=== PATIENT | male | born 1990 | race African-American/Black ===

== ENCOUNTER 2023-11-28 15:15 | Outpatient (REF) | payer OTHER, SELFPAY ==
[2023-11-28 18:06] LABS: TSH reflex Free T4 0.52 uIU/mL (0.32-4.0)
[2023-11-29 07:58] LABS: HIV AB/AG Nonreactive (Nonreactive); HIV Num 1 0.05 S/CO (0.00-0.99); ~Hepatitis C Antibody Nonreactive (Nonreactive)
[2023-11-29 08:17] LABS: Syphilis Screen Nonreactive (Nonreactive)
[2023-11-29 12:26] LABS: CT PCR NOT DETECTED (Not Detect.); NG PCR NOT DETECTED (Not Detect.)
== END 2023-11-28 15:16 | disposition home or self-care (01) ==
LOC: HO.CHCLDS 15:15
PROVIDERS: Visit Provider Pediatrics
DX: Z11.4 Encounter for screening for human immunodeficiency virus [HIV] (principal); Z20.2 Contact with and (suspected) exposure to infections with a predominantly sexual mode of transmission; K21.9 Gastro-esophageal reflux disease without esophagitis; Z71.3 Dietary counseling and surveillance; Z71.82 Exercise counseling
CPT/HCPCS: 0353U; 36415; 84443; 86780; 86803; 87389

== ENCOUNTER 2025-03-17 11:27 | Outpatient (REF) | payer OTHER, SELFPAY ==
--- OUTSIDE RECORDS SUMMARY | 2025-03-17 12:25 | XMS_ITS | Encounter Summary ---
Author Organization [employer] Address [address] [facility] [address] [place] [address] Care Team Providers Care Residential Gas Heat Technician Name Role Phone Petrona Paulino MD Primary Care Provider [phone] Reason for Visit * Reason Onset Date Comments Chart Prep 03/16/2025 Encounter Details Date Type Department Care Team ([facility] st Contact Info) Description 03/16/2025 Telephone [facility] [address] [place], [place] [phone] Petrona Paulino MD [address] [place] [address] Chart Prep Social History Tobacco Use Types Packs/Day Years Used Date Smoking Tobacco: Never Smokeless Tobacco: Never Alcohol Answer Date Recorded Frequency of Alcohol Consumption Not on file 11/28/2023 Average Number of Drinks Not on file 024 Frequency of Binge Drinking Not on file 11/2023 Score 0 11/28/2023 Depression Answer Date Recorded Patient Health Questionnaire-9 Score 5 03/17/2025 Patient Health Questionnaire-9 Score 5 03/17/2025 Last PHQ-9: Questionnaire Data Not on file 0 03/17/2025 Housing Stability Answer Date Recorded What is your housing situation today? I have rosio stiles 03/17/[address] you li ve. Do you have problems with any of the following? None of the above 03/17/2025 Food Insecurity Answer Date Recorded Within the past 12 months, y ou worried that your food would run out before you got money to buy more: Never True 03/17/2025 Within the past 12 months,th e food you bought just didn't last and you didn't have enough money to get more: Never True Transportation Answer Date Recorded In the past 12 months, has l ack of transportation kept you from medical appts, meetings, work or from getting things needed for daily living? No 03/17/2025 Utilities Answer Date Recorded In the past 12 months, has t he electric, gas, oil or water company threatened to shut off services in your home? No 03/17/2025 Depression Answer Date Recorded Patient Health Questionnaire-2 Score 1 03/17/2025 Internet Access Answer Date Recorded Internet Access Q1 Yes 03/17/2025 Internet Access Q2 Not on file 03/17/2025 Sex and Gender Information Value Date Recorded Sex Assigned at Male 06/25/2022 10:23 AM EDT Legal Sex Male 10:23 AM EDT Gender Identity Male 06/25/2022 10:23 AM EDT Sexual Orientation Straight 06/25/2022 10 :23 AM EDT documented as of this encounter Miscellaneous Notes * Telephone Encounter - Nery Mota [place] - 03/16/2025 3:58 PM EDT Chart Prep Labs: not applicable Images: not applicable Referrals: not applicable Vaccines due: Tdap, Hep B, and HPV Screenings: not applicable Overdue care gaps: SBIRT, SDOH, PHQ-9, Oral health screening, Disability screen, and Tobacco documented in this encounter Plan of Treatment Not on file documented as of this encounter Visit Diagnoses Not on filedocumented in this encounter Additional Health Concerns Assessment Noted Time PHQ-9 Depression Total Score: 8 01/27/20 24 3:37 PM EDT documented as of this encounter Care Teams Residential Gas Heat Technician Relationship Specialty Start Date End Date Petrona Paulino MD [address] [place] [address] PCP - General Family Medicine 07/16/18 documented as of this encounter
--- OUTSIDE RECORDS SUMMARY | 2025-03-17 12:25 | XMS_ITS | Clinical Summary ---
Author Organization [facility] Address [address] [place] [address] Phone Care Team Providers Care Senior Marketing Engineer Name Role Phone Petrona Paulino MD Primary Care Provider [phone] Allergies No known active allergies Medications carisoprodoL (SOMA) 350 mg tablet Take 1 tablet (350 mg total) by mouth 3 (three) times a day for 5 days. Max Daily Amount: 1,050 mg 15 tablet 02/26/2025 Active Encounters Date Type Department Care Team Description 02/26/2025 3:58 AM EDT - 02/26/2025 4:50 AM EDT Emergency [facility] Emergency [address] [place] [address] Angus Diallo MD Spasm of thoracic back muscle (Primary Dx) Discharge Disposition: Home or Self Care from Last 3 Months Social History Tobacco Use Types Packs/Day Years Used Date Smoking Tobacco: Never Assessed Sex and Gender Information Value Date Recorded Sex Assigned at Not on file Legal Sex Male 11:33 PM EST Gender Identity Not on file Sexual Orientation Not on file Last Filed Vital Signs Vital Sign Reading Time Taken Comments Blood Pressure 107/75 02/26/2025 2:00 AM EDT Pulse 76 02/26/2025 2:00 AM EDT Temperature 36.9 C (98.4 F) 02/26/2025 2:00 AM EDT Respiratory Rate 16 02/26/2025 2:00 AM EDT Oxygen Saturation 98% 02/26/2025 2:00 AM EDT Inhaled Oxygen Concentration - - Weight 65.8 kg (145 lb) 02/25/2025 10:12 PM EDT Height 154.9 cm (5' 1 ) 02/25/2025 10:12 PM EDT Body Mass Index 27.4 02/25/2025 10:12 PM EDT Plan of Treatment Upcoming Encounters Date Type Department Care Team (Late st Contact Info) Description 03/17/2025 7:30 PM EDT Appointment [facility] MRI [address] [place] [address] Health Maintenance Due Date Last Done Comments DTaP,Tdap,and Td Vaccines (1 - Tdap) 2010 Hepatitis B Vaccines (1 of 3 - 19+ 3-dose series) 2010 COVID-19 Vaccine (2023-2 5 season) 2024 Depression Screening 08/26/2024 Social Influencers of Health Screening 02/26/2025 Influenza Vaccine (#1) 2025 HIV Screening Completed 11/28/2023 Hepatitis C Screening Completed 11/28/2023 HIB Vaccines Aged Out No longer eligi ble based on patient's age to complete this topic HPV Vaccines Aged Out No longer eligi ble based on patient's age to complete this topic Hepatitis A Vaccines Aged Out No long er eligible based on patient's age to complete this topic IPV Vaccines Aged Out No longer eligi ble based on patient's age to complete this topic MMR Vaccines Aged Out No longer eligi ble based on patient's age to complete this topic Meningococcal ACWY Vaccine Aged Out N o longer eligible based on patient's age to complete this topic Meningococcal B Vaccine Aged Out No l onger eligible based on patient's age to complete this topic Pneumococcal Vaccine: Pediat rics (0 to 5 Years) and At-Risk Patients (6 to 49 Years) Aged Out No longer eligi ble based on patient's age to complete this topic RSV Immunization Patients Un amelia 20 months Aged Out No longer eligible b ased on patient's age to complete this topic Varicella Vaccines Aged Out No longer eligible based on patient's age to complete this topic Insurance GENERIC GENERIC Care Teams Senior Marketing Engineer Relationship Specialty Start Date End Date Petrona Paulino MD [address] [place] [phone] PCP - General Internal Medicine 02/26/25
[2025-03-17 14:17] LABS: MANUAL DIFF FLAG NO
[2025-03-17 14:20] LABS: Hematocrit 46.3 % (42.0-52.0); Hemoglobin 15.8 g/dl (14.0-18.0); Imm Gran Abs Auto 0.03 X10*3/uL (0.00-0.03); Imm Gran Pct Auto 0.4 % (0.0-0.4); Lymphocytes Absolute Auto 2.8 X10*3/uL (1.2-4.9); Mean Corpuscular HGB Conc 34.1 g/dl (31.0-36.0); Mean Corpuscular Hemoglobin 31.2 pg (27.0-33.0); Mean Corpuscular Volume 91.3 fL (80.0-98.0); NRBC Abs Auto 0.000 X10*3/uL (0.0-0.012); NRBC Pct Auto 0.0 /100WBC (0.0-0.2); Platelet Count 298 X10*3/uL (160-400); Red Blood Count 5.07 X10*6/uL (4.60-5.80); White Blood Count 7.6 X10*3/uL (4.8-10.8)
[2025-03-17 14:37] LABS: Alanine Aminotransferase 27 U/L (0-40); Albumin Level 4.7 g/dL (3.5-5.0); Alkaline Phosphatase 94 U/L (39-117); Anion Gap 11 (12-20); Aspartate Amino Transferase 24 U/L (5-37); Blood Urea Nitrogen 17 mg/dL (9-16); Calcium 9.5 mg/dL (8.4-10.2); Carbon Dioxide 29 mmol/L (22-29); Chloride 106 mmol/L (96-108); Estimated Glomerular Filt Rate > 60; Lipase 27 U/L (8-78); Potassium 4.7 mmol/L (3.3-5.1); Sodium 141 mmol/L (135-145); Total Protein 7.2 g/dL (6.5-8.0)
[2025-03-17 15:09] LABS: Folate 13.0 ng/mL (> or = 4.0); Vitamin B12 311 pg/mL (200-900)
[2025-03-17 15:42] LABS: CT PCR Urine NOT DETECTED (Not Detect.); NG PCR Urine NOT DETECTED (Not Detect.)
[2025-03-18 08:08] LABS: HIV Num 1 0.05 S/CO (0.00-0.99); ~HepC Num1 0.10 S/CO (0.00-0.79); ~Hepatitis C Antibody Nonreactive (Nonreactive)
== END 2025-03-17 11:28 | disposition home or self-care (01) ==
LOC: HO.CHCLDS 11:27
PROVIDERS: Visit Provider Pediatrics
DX: Z11.4 Encounter for screening for human immunodeficiency virus [HIV] (principal); R10.13 Epigastric pain; G89.29 Other chronic pain; Z91.89 Other specified personal risk factors, not elsewhere classified; Z20.2 Contact with and (suspected) exposure to infections with a predominantly sexual mode of transmission
CPT/HCPCS: 36415; 80048; 80076; 82607; 82746; 83013; 83690; 84443; 85025; 86803; 87389; 87491; 87591

== ENCOUNTER 2025-07-27 12:39 | Emergency (ER) | payer OTHER, SELFPAY ==
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
--- OUTSIDE RECORDS SUMMARY | 2025-07-24 08:57 | XMS_ITS | Encounter Summary ---
Author Organization [employer] Address [address] [place] [address] Care Team Providers Care Wall Scraper Name Role Phone Petrona Paulino MD Primary Care Provider [phone] Reason for Referral * Consultation (Routine) - Pending Review Specialty Diagnoses / Procedures Referred By Katty barrios Referred To Contact Neurology Diagnoses Nonintractable headache, unspecified chronicity pattern, unspecified headache type Aditya Gonzalez PA [address] [place] [address] Phone: tel: fax: Referral ID Status Reason Start Date Expiration Date Visits Requested Visits Authorized [id number] Pending Review Specialty Services Required 07/24/2026 1 1 Reason for Visit * Reason Comments Headache Encounter Details Date Type Department Care Team (Late st Contact Info) Description 07/24/2025 8:57 AM EST - 07/24/2025 11:52 AM EST Emergency [facility] Emergency [address] [place] [address] Nonintractable headache, unspecified chronicity pattern, unspecified headache type (Primary Dx) Discharge Disposition: Home or Self Care Social History Tobacco Use Types Packs/Day Years Used Date Smoking Tobacco: Never Assessed Sex and Gender Information Value Date Recorded Sex Assigned at Not on file Legal Sex Male 11:33 PM EST Gender Identity Not on file Sexual Orientation Not on file documented as of this encounter Last Filed Vital Signs Vital Sign Reading Time Taken Comments Blood Pressure 110/53 07/24/2025 11:41 AM EST Pulse 78 07/24/2025 11:41 AM EST Temperature 36.5 C (97.7 F) 07/24/2025 11:41 AM EST Respiratory Rate 18 07/24/2025 11:41 AM EST Oxygen Saturation 99% 07/24/2025 11:41 AM EST Inhaled Oxygen Concentration - - Weight 64.9 kg (143 lb) 07/24/2025 9:03 AM EST Height 162.6 cm (5' 4 ) 07/24/2025 9:03 AM EST Body Mass Index 24.55 07/24/2025 9:03 AM EST documented in this encounter Functional Status * Calculated C-SSRS Risk Score (Lifetime/Recent) Answer Date of Assessment Author No Risk Indicated 07/24/2025 8:39 AM Risa Javier RN * [place] Suicide Severity Rating Scale (Screener/Recent Self-Report) Question Answer Date of Assessment Author 1. Wish to be (Past 1 Month) No 025 8:39 AM Risa Javier RN documented as of this encounter Discharge Instructions * Discharge Instructions* PARKER Fields - 07/24/2025 11:22 AM EST CAT scan shows no signs of brain mass bleeding or tumor No emergent findings on workup today needing further testing, treatment or hospitalization Take medicines as needed as prescribed Follow up with primary care doctor if symptoms persist Return to Emergency Department with new or worsening symptoms * Attachments The following attachments cannot be sent through Care Everywhere. * Headache (Tamazight) documented in this encounter Medications at Time of Discharge ketorolac (TORADOL) 10 mg tablet Take 1 tablet (10 mg total) by mouth every 6 (six) hours if needed for moderate pain for up to 5 days. 20 tablet 07/24/2025 07/29/2025 metoclopramide (REGLAN) 10 mg tablet Take 1 tablet (10 mg total) by mouth every 6 (six) hours for 7 days. 30 tablet 07/24/2025 07/31/2025 documented as of this encounter Ordered Prescriptions Prescription Sig Dispense Quantity Refills Last Filled Start Date End Date metoclopramide (REGLAN) 10 mg tablet Take 1 tablet (10 mg total) by mouth every 6 (six) hours for 7 days. 30 tablet 07/24/2025 5 ketorolac (TORADOL) 10 mg tablet Take 1 tablet (10 mg total) by mouth every 6 (six) hours if needed for moderate pain for up to 5 days. 20 tablet 07/24/2025 5 documented in this encounter Discharge Disposition Disposition Code Departure Means Destination Comment s Home or Self Care documented in this encounter Progress Notes * Risa Monreal RN - 07/24/2025 8:39 AM EST Pt comes to ER with c/o a head ache that has been ongoing for 2 days with some associated n/v. Pt states he had a head injury in February and has experience head aches since but this is the worst he has felt. Pt states he was given 2 medications from his PCP but doesn't know what they're called and pt states was the last time he tired any medications for the pain. Pt a&ox 4, ambulates with steady gait in triage. * PARKER Fields - 07/24/2025 8:37 AM EST HPI Chief Complaint Patient presents with Headache HPI history of migraine headaches presenting with worsening frontal headache for the past 2 days with some associated nausea vomiting. Did have head injury back in February when the headache started. Never had any imaging. Denies any vision loss numbness tingling weakness changes in coordination Refugio Coma Scale Score: 15 Patient History Medical History[1] Surgical History[2] Family History[3] Social History Tobacco Use Smoking status: Not on file Smokeless tobacco: Not on file Substance Use Topics Alcohol use: Not on file Drug use: Not on file Review of Systems Review of Systems Physical Exam ED Triage Vitals [07/24/25 0903] Temp Heart Rate Resp BP 36.7 ??C (98.1 ??F) 87 18 124/82 SpO2 Temp Source Heart Rate Source Patient Position 100 % Oral Monitor Sitting BP Location FiO2 (%) Left arm -- Physical Exam GENERAL: No acute distress HEENT: Normocephalic and atraumatic, EOMI NECK: Supple, trachea is midline RESP: No respiratory distress, lung sounds clear and equal bilaterally, speaking complete sentences CARDIOVASCULAR: Heart sounds crisp without murmur, regular rate GASTROINTESTINAL: Abdomen is soft, non distended MUSCULOSKELETAL: No obvious acute deformities, ROM intact SKIN: Warm and dry NEUROLOGIC: At baseline, no acute focal deficits PSYCHIATRIC: Calm and cooperative ED Course & MDM Clinical Impressions as of 07/25/25 0741 Nonintractable headache, unspecified chronicity pattern, unspecified headache type Medical Decision Making Differential diagnosis tension, migraine, cluster, sinus headache, lower suspicion for mass, lesion, stroke, intracranial hypertension given mild nature of symptoms and no focal neurodeficits Vital signs reviewed Pulse oximetry reviewed and found to be > 94% on room air Physical exam as above Nursing notes reviewed CBC negative for significant leukocytosis or anemia requiring blood transfusion Metabolic panel negative for significant electrolyte abnormality with no signs of acute organ dysfunction Symptomatic treatment provided On reevaluation patient reportedly feeling better Social determinants of health considered including housing follow-up social and financial support Patient deemed appropriate for discharge with symptomatic treatment, recommendations to follow-up with primary care doctor / specialist with return precautions provided Procedures [1] No past medical history on file. [2] No past surgical history on file. [3] No family history on file. PARKER Fields 07/25/25 0741 Cosigned by Carlton Miller MD at 07/26/2025 11:19 PM EST documented in this encounter Plan of Treatment Scheduled Referrals Name Type Priority Associated Diagnoses Order Schedule Ambulatory referral to Neurology Outpatient Referral Routine 1 Occurrence s starting 07/24/2025 until 07/24/2026 documented as of this encounter Procedures Procedure Name Priority Date/Time Associated Diagnosis Comments CT HEAD WO CONTRAST STAT 07/24/2025 1 0:33 AM EST CBC WITH AUTO DIFFERENTIAL STAT 07/24/2025 9:17 AM EST CBC AND DIFFERENTIAL STAT 07/24/2025 9:17 AM EST BASIC METABOLIC PANEL STAT 07/24/2025 9:17 AM EST documented in this encounter Results * CT Head wo Contrast (07/24/2025 10:33 AM EST) Anatomical Region Laterality Modality Head and Neck Computed Tomogra phy 07/24/2025 11:0 3 AM EST Impressions 07/24/2025 11:12 AM EST No acute intracranial abnormality -------- FINAL REPORT -------- Dictated By: MIKY ESTEBAN Dictated Date: 07/24/2025 11:03 ET Assigned Physician: MIKY ESTEBAN Reviewed and Electronically Signed By: MIKY ESTEBAN Signed Date: 07/24/2025 11:12 ET Workstation ID: [id number] Transcribed By: Self Edit Transcribed Date: 07/24/2025 11:03 ET Narrative 07/24/2025 11:12 AM EST PROCEDURE: HEAD CT INDICATION: Pain TECHNIQUE: CT of the head without intravenous contrast. Multiplanar reformats. The examination was performed utilizing dose reduction techniques. Total DLP 809 COMPARISON: 04/30/2017 FINDINGS: No acute territorial infarct, mass effect, or intracranial hemorrhage. Qureshi-white differentiation is maintained. Brain parenchyma is normal. Ventricles, sulci, and cisterns are normal in size and configuration. No hydrocephalus or volume loss. Visualized paranasal sinuses and mastoid air cells are clear. No scalp hematoma or skull fracture. Procedure Note Miky Esteban MD - 07/24/2025 PROCEDURE: HEAD CT INDICATION: Pain TECHNIQUE: CT of the head without intravenous contrast. Multiplanarreformats. The examination was performed utilizing dose reductiontechniques. Total DLP 809 COMPARISON: 04/30/2017 FINDINGS: No acute territorial infarct, mass effect, or intracranial hemorrhage. Qureshi-white differentiation is maintained. Brain parenchyma is normal. Ventricles, sulci, and cisterns are normal in size and configuration. Nohydrocephalus or volume loss. Visualized paranasal sinuses and mastoid air cells are clear. No scalp hematoma or skull fracture. IMPRESSION: No acute intracranial abnormality -------- FINAL REPORT -------- Dictated By: MIKY ESTEBAN Dictated Date: 07/24/2025 11:03 ET Assigned Physician: MIKY ESTEBAN Reviewed and Electronically Signed By: MIKY ESTEBAN Signed Date: 07/24/2025 11:12 ET Workstation ID: [id number] Transcribed By: Self Edit Transcribed Date: 07/24/2025 11:03 ET us Aditya CANALES IMG CT PROCEDURES Final Res ult * (ABNORMAL) CBC auto differential (07/24/2025 9:17 AM EST) WBC 9.4 4.8 - 10.8 K/mcL LAB HEMETOLOGY METHOD 07/24/2025 9:35 AM [facility] RBC 5.20 4.50 - 5.50 M/[facility] LAB HEMETOLOGY METHOD 07/24/2025 9:35 AM [facility] Hemoglobin 16.0 13.5 - 17.5 g/dL LAB HEMETOLOGY METHOD 07/24/2025 9:35 AM [facility] Hematocrit 46.3 42.0 - 54.0 % LAB HEMETOLOGY METHOD 07/24/2025 9:35 AM [facility] MCV 89.2 79.0 - 98.0 FL LAB HEMETOLOGY METHOD 07/24/2025 9:35 AM [facility] MCH 30.8 27.0 - 32.0 pcg LAB HEMETOLOGY METHOD 07/24/2025 9:35 AM [facility] MCHC 34.6 32.0 - 37.0 g/dL LAB HEMETOLOGY METHOD 07/24/2025 9:35 AM [facility] RDW 12.5 11.0 - 15.0 % LAB HEMETOLOGY METHOD 07/24/2025 9:35 AM [facility] Platelets 286 130 - 400 K/mcL LAB HEMETOLOGY METHOD 07/24/2025 9:35 AM [facility] MPV 9.9 7.0 - 11.0 FL LAB HEMETOLOGY METHOD 07/24/2025 9:35 AM [facility] NRBC 0.0 <1.0 % LAB HEMETOLOGY METHOD 07/24/2025 9:35 AM [facility] NRBC Absolute 0.00 <0.10 K/mcL LAB HEMETOLOGY METHOD 07/24/2025 9:35 AM [facility] Neutrophils Relative 62.7 % LAB HEMETOLOGY METHOD 07/24/2025 9:35 AM [facility] Lymphocytes Relative 25.2 % LAB HEMETOLOGY METHOD 07/24/2025 9:35 AM [facility] Monocytes Relative 9.2 % LAB HEMETOLOGY METHOD 07/24/2025 9:35 AM [facility] Eosinophils Relative 2.1 % LAB HEMETOLOGY METHOD 07/24/2025 9:35 AM [facility] Basophils Relative 0.3 % LAB HEMETOLOGY METHOD 07/24/2025 9:35 AM [facility] Immature Granulocytes Relative 0.5 % LAB HEMETOLOGY METHOD 07/24/2025 9:35 AM [facility] Neutrophils Absolute 5.90 1.50 - 7.00 K/mcL LAB HEMETOLOGY METHOD 07/24/2025 9:35 AM [facility] Lymphocytes Absolute 2.38 1.00 - 5.00 K/mcL LAB HEMETOLOGY METHOD 07/24/2025 9:35 AM [facility] Monocytes Absolute 0.87 0.20 - 1.00 K/mcL LAB HEMETOLOGY METHOD 07/24/2025 9:35 AM [facility] Eosinophils Absolute 0.20 0.00 - 0.50 K/[facility] LAB HEMETOLOGY METHOD 07/24/2025 9:[address] [facility] Basophils Absolute 0.03 0.00 - 0.20 K/[facility] LAB HEMETOLOGY METHOD 07/24/2025 9:[address] [facility] Immature Granulocytes Absolute 0.05(H) 0.00 - 0.03 K/[facility] LAB HEMETOLOGY METHOD 07/24/2025 9:[address] [facility] Blood Venous blood specimen / Unknown Venipuncture / Unknown 07/24/2025 9:17 AM EST 07/24/2025 9:31 AM EST Aditya CANALES LAB BLOOD ORDERABLES Final Result [facility] [address] [place] [address], * (ABNORMAL) Basic Metabolic Panel (BMP) (07/24/2025 9:17 AM EST) Sodium 141 133 - 145 mmol/L 07/24/2025 9:59 AM [facility] Potassium 4.6 3.5 - 5.5 mmol/L 07/24/2025 9:59 AM [facility] Chloride 106 96 - 110 mmol/L 07/24/2025 9:59 AM [facility] CO2 27 21 - 32 mmol/L 07/24/2025 9:59 AM [facility] Anion Gap 8 3 - 11 07/24/2025 9:59 AM [facility] Glucose 108(H) 70 - 100 mg/dL 07/24/2025 9:59 AM [facility] BUN 21 5 - 25 mg/dL 07/24/2025 9:59 AM [facility] Creatinine 0.82 0.70 - 1.30 mg/dL 07/24/2025 9:[address] [facility] eGFR 119 >=60 mL/min/1. 73m2 07/24/2025 9:[address] [facility] Comment:Calculation based on the Chronic Kidney Disease Epidemiology Collaboration (CKD-EPI) equation refit without adjustment for race. BUN/Creatinine Ratio 25.6 07/24/2025 9:[address] [facility] Calcium 9.6 8.5 - 10.5 mg/dL 07/24/2025 9:[address] [facility] Blood Venous blood specimen / Unknown Venipuncture / Unknown 07/24/2025 9:17 AM EST 07/24/2025 9:31 AM EST us Aditya CANALES LAB BLOOD ORDERABLES Final Result Performing Organization Address City/State/[facility] Co de Phone Number [facility] [address] [place] [address], documented in this encounter Visit Diagnoses Diagnosis Nonintractable headache, unspecified chronicity pattern, unspecified headache type- Primary documented in this encounter Administered Medications Inactive Administered Medications - up to 3 most recent administrations Medication Order MAR Action Action Date Dose Rate Site diphenhydrAMINE (BENADRYL) injection 12.5 mg 12.5 mg, intravenous, Once, On 07/24/25 at 0904, For 1 dose Given 07/24/2025 9:28 AM EST 12.5 mg ketorolac (TORADOL) injection 15 mg 15 mg, intravenous, Once, On 07/24/25 at 0904, For 1 dose Given 07/24/2025 9:28 AM EST 15 mg metoclopramide (REGLAN) injection 10 mg 10 mg, intravenous, Once, On 07/24/25 at 0904, For 1 dose, Doses LESS than or equal to 10 mg can be given IV push undiluted over 1 minute Given 07/24/2025 9:28 AM EST 10 mg sodium chloride 0.9 % bolus 1,000 mL 1,000 mL, intravenous, at 2,000 mL/hr, Administer over 30 Minutes, Once, On 07/24/25 at 0904, For 1 dose New Bag 07/24/2025 9:28 AM EST 1,000 mL 2000 mL/hr documented in this encounter Active and Recently Administered Medications Times are shown in EST. Scheduled Medication Order 07/22/2025 07/23/2025 07/24/2025 diphenhydrAMINE (BENADRYL) injection 12.5 mg (COMPLETED) 12.5 mg, intravenous, Once, On 07/24/25 at 0904, For 1 dose 927 (Given - Provid er: Talia Gillette RN) ketorolac (TORADOL) injection 15 mg (COMPLETED) 15 mg, intravenous, Once, On 07/24/25 at 0904, For 1 dose 927 (Given - Provid er: Talia Gillette RN) metoclopramide (REGLAN) injection 10 mg (COMPLETED) 10 mg, intravenous, Once, On 07/24/25 at 0904, For 1 dose, Doses LESS than or equal to 10 mg can be given IV push undiluted over 1 minute 927 (Given - Provid er: Talia Gillette RN) sodium chloride 0.9 % bolus 1,000 mL (COMPLETED) 1,000 mL, intravenous, at 2,000 mL/hr, Administer over 30 Minutes, Once, On 07/24/25 at 0904, For 1 dose 927 (New Bag - Prov ider: Talia Gillette RN)1120 (Stopped - Provider: Gustavo Mirza RN) documented in this encounter Care Teams Wall Scraper Relationship Specialty Start Date End Date Petrona Paulino MD [address] [place] [address] PCP - General Internal Medicine 02/26/25 documented as of this encounter
--- OUTSIDE RECORDS SUMMARY | 2025-07-27 11:00 | XMS_ITS | Encounter Summary ---
Author Organization [employer] Address [address] [place] [address] Care Team Providers Care Decorating Consultant Name Role Phone Petrona Paulino MD Primary Care Provider [phone] Encounter Details Date Type Department Care Team (Late st Contact Info) Description 07/27/2025 11:00 AM EST Office Visit [facility] [address] [place] [address] [phone] Alfredito Vogt MD [address], [place] [phone] Intractable headache, unspecified chronicity pattern, unspecified headache type (Primary Dx); Nausea and vomiting, unspecified vomiting type Social History Tobacco Use Types Packs/Day Years [...] Sign Reading Time Taken Comments Blood Pressure 134/86 07/27/2025 11:28 AM EST Pulse 83 07/27/2025 11:28 AM EST Temperature 36.7 C (98 F) 07/27/2025 11:28 AM EST Respiratory Rate 17 07/27/2025 11:28 AM EST Oxygen Saturation 99% 07/27/2025 11:28 AM EST Inhaled Oxygen Concentration - - Weight 64.6 kg (142 lb 6.4 oz) 07/27/2025 11:28 AM EST Height - - Body Mass Index 23.7 07/17/2025 11:27 AM EST documented in this encounter Plan of Treatment Not on file documented as of this encounter Procedures Procedure Name Priority Date/Time Associated Diagnosis Comments POCT INFLUENZA B (ID NOW RAPID MOLECULAR) Routine 07/27/2025 11:53 AM EST Intractable headache, unspecified chronicity pattern, unspecified headache type POCT INFLUENZA A (ID NOW RAPID MOLECULAR) Routine 07/27/2025 11:53 AM EST Intractable headache, unspecified chronicity pattern, unspecified headache type POCT RAPID COVID ANTIGEN Routine 07/27/2025 11:53 AM EST Intractable headache, unspecified chronicity pattern, unspecified headache type documented in this encounter Results * POCT Rapid Covid-19 BinaxNOW (07/27/2025 11:53 AM EST) Rapid COVID Ag Negative Swab 07/27/2025 11:5 3 AM EST us Alfredito Vogt MD POINT OF CARE TEST ENTER/EDIT OR DERABLES Final Result * POCT Rapid Influenza A YEBOAH ID NOW (07/27/2025 11:53 AM EST) [facility] Influenza A Negative Negative, Indeterminate [facility] Swab 07/27/2025 11:5 3 AM EST us Alfredito Vogt MD POINT OF CARE TEST ENTER/EDIT OR DERABLES Final Result Performing Organization Address [facility] Co de Phone Number [facility] [address] [place] [phone] * POCT Rapid Influenza B YEBOAH ID NOW (07/27/2025 11:53 AM EST) [facility] Influenza B Negative Negative, Indeterminate [facility] Swab 07/27/2025 11:5 3 AM EST us Alfredito Vogt MD POINT OF CARE TEST ENTER/EDIT OR DERABLES Final Result Performing Organization Address [facility] Co de Phone Number [facility] [address] [place] [phone] documented in this encounter Visit Diagnoses Diagnosis Intractable headache, unspecified chronicity pattern, unspecified headache type- Primary Nausea and vomiting, unspecified vomiting type documented in this encounter Additional Health Concerns Assessment Noted Time PHQ-9 Depression Total Score: 5 03/17/20 25 10:56 AM EDT documented as of this encounter Care Teams Decorating Consultant Relationship Specialty Start Date End Date Petrona Paulino MD [address] [place] [phone] PCP - General Family Medicine 07/16/18 documented as of this encounter
[2025-07-27 12:41] VITALS: BP 139/75; PULSE 71; RESP 18; TEMP 36.6; O2SAT 98; BMI 23.7
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
[2025-07-27 13:03] LABS: Hemoglobin 15.0 g/dl (14.0-18.0); MANUAL DIFF FLAG NO; Red Blood Count 4.84 X10*6/uL (4.60-5.80); White Blood Count 9.8 X10*3/uL (4.8-10.8)
[2025-07-27 13:04] LABS: Hematocrit 43.1 % (42.0-52.0); Imm Gran Abs Auto 0.03 X10*3/uL (0.00-0.03); Imm Gran Pct Auto 0.3 % (0.0-0.4); Lymphocytes Absolute Auto 2.5 X10*3/uL (1.2-4.9); Mean Corpuscular HGB Conc 34.8 g/dl (31.0-36.0); Mean Corpuscular Hemoglobin 31.0 pg (27.0-33.0); Mean Corpuscular Volume 89.0 fL (80.0-98.0); NRBC Abs Auto 0.000 X10*3/uL (0.0-0.012); NRBC Pct Auto 0.0 /100WBC (0.0-0.2); Platelet Count 290 X10*3/uL (160-400)
[2025-07-27 13:05] LABS: Carbon Monoxide POC 3.0 %
[2025-07-27 13:18] LABS: Alanine Aminotransferase 35 U/L (0-40); Albumin Level 4.7 g/dL (3.5-5.0); Alkaline Phosphatase 83 U/L (39-117); Anion Gap 13 (12-20); Aspartate Amino Transferase 24 U/L (5-37); Blood Urea Nitrogen 13 mg/dL (9-16); Calcium 9.6 mg/dL (8.4-10.2); Carbon Dioxide 26 mmol/L (22-29); Chloride 106 mmol/L (96-108); Creatinine Clr Calc Pharmacy 134.4; Estimated Glomerular Filt Rate > 60; Magnesium 1.9 mg/dL (1.6-2.6); Potassium 3.8 mmol/L (3.3-5.1); Sodium 141 mmol/L (135-145); Total Protein 7.0 g/dL (6.5-8.0)
[2025-07-27 13:38] LABS: Resp Syncy Virus RNA Qual PCR NEGATIVE (Negative); SARS COV2 PCR INHOUSE NEGATIVE (Negative)
--- OUTSIDE RECORDS SUMMARY | 2025-07-27 14:57 | XMS_ITS | Encounter Summary ---
Author Organization [employer] Address [address] [place] [address] Care Team Providers Care Master Control Technician Name Role Phone Petrona Paulino MD Primary Care Provider [phone] Reason for Visit * Reason Comments Med Refill Encounter Details Date Type Department Care Team ([facility] st Contact Info) Description 07/24/2025 Refill [facility] [address] [place] [phone] Greg Rivera MD [address] [place] [address] Episodic cluster headache, not intractable Social History Tobacco Use Types Packs/Day Years [...] AM EDT documented as of this encounter Plan of Treatment Not on file documented as of this encounter Visit Diagnoses Diagnosis Episodic cluster headache, not intractable documented in this encounter Additional Health Concerns Assessment Noted Time PHQ-9 Depression Total Score: 5 03/17/20 25 10:56 AM EDT documented as of this encounter Care Teams Master Control Technician Relationship Specialty Start Date End Date Petrona Paulino MD [address] [place] [address] PCP - General Family Medicine 07/16/18 documented as of this encounter
--- OUTSIDE RECORDS SUMMARY | 2025-07-27 14:57 | XMS_ITS | Encounter Summary ---
Author Organization [employer] Address [address] [facility] 7 [place] [address] Care Team Providers Care Rectifying Operator Name Role Phone Petrona Paulino MD Primary Care Provider Reason for Visit * Reason Onset Date Comments ER Follow-up 07/27/2025 Encounter Details Date Type Department Care Team ([facility] st Contact Info) Description 07/27/2025 Telephone [facility] [address] [place] [address] Petrona Paulino MD [address] [place] [address] ER Follow-up Social History Tobacco Use Types Packs/Day Years [...] encounter Miscellaneous Notes * Telephone Encounter - Reid Alvarez RN - 07/27/2025 10:42 AM EST TC placed to patient. Patient was seen at [facility] ED on 07/24 and [facility] ED on 07/26 for headaches, N/V. Patient reported his headaches has not subsided after the ED visit. Patient reported he is taking the prescribed medications from the ED visit w/o any relief. RN scheduled an appt with a providerfor further evaluation. Patient verbalized understanding. Protocol Used: Headache (Adult) Protocol-Based Disposition: See in Office or Video Visit Today Video visit not offered Positive Triage Questions: * Patient wants to be seen * Moderate headache (e.g., interferes with normal activities) present > 24 hours and unexplained * Similar to previously diagnosed migraine headaches * All higher-acuity triage questions were negative. Care Advice Discussed: * Reassurance and Education - Migraine Headache * Pain Medicine for Migraine * Pain Medicines * Pain Medicines - Extra Notes and Warnings * Rest for Migraine Headache * Headache Diary * Reasons To Call Back - Severe headache lasts over 2 hours after pain medicine - Headache lasts over 72 hours - Stiff neck occurs (can't touch chin to chest) - You become worse * Telephone Encounter - Christine Rey - 07/27/2025 8:43 AM EST Patient calling to report ED visit on : Date: 07/26 Hospital: [facility] Seen for: Hot flashes, headache Symptomatic Yes *if yes message should go to Triage Patient advised will forward to team nurse for follow up documented in this encounter Plan of Treatment Not on file documented as of this encounter Visit Diagnoses Not on filedocumented in this encounter Additional Health Concerns Assessment Noted Time PHQ-9 Depression Total Score: 5 03/17/20 25 10:56 AM EDT documented as of this encounter Care Teams Rectifying Operator Relationship Specialty Start Date End Date Petrona Paulino MD [address] [place] [address] PCP - General Family Medicine 07/16/18 documented as of this encounter
--- OUTSIDE RECORDS SUMMARY | 2025-07-27 14:57 | XMS_ITS | Encounter Summary ---
Author Organization [employer] Address [address] [facility] 7 [place] [address] Care Team Providers Care Soft Boarder Name Role Phone Petrona Paulino MD Primary Care Provider [phone] Encounter Details Date Type Department Care Team (Late st Contact Info) Description 07/26/2025 Orders Only [facility] [address] [place] [address] Provider, MD Teri Social History Tobacco Use Types Packs/Day Years [...] your housing situation today? I have rosio linsey 03/17/[address] you li [...] Associated Diagnosis Comments CT HEAD WO CONTRAST Routine 07/24/2025 documented in this encounter Results * CT Head w/o Contrast (07/24/2025) Anatomical Region Laterality Modality Head, Neck Computed Tomogra phy us Historical Provider MD SIMMONS CT PROCEDURES Final R esult documented in this encounter Visit Diagnoses Not on filedocumented in this encounter Additional Health Concerns Assessment Noted Time PHQ-9 Depression Total Score: 5 03/17/20 25 10:56 AM EDT documented as of this encounter Care Teams Soft Boarder Relationship Specialty Start Date End Date Petrona Paulino MD [address] [place] [phone] PCP - General Family Medicine 07/16/18 documented as of this encounter
--- OUTSIDE RECORDS SUMMARY | 2025-07-27 14:58 | XMS_ITS | Encounter Summary ---
Author Organization [employer] Address [address] [place] [address] Care Team Providers Care Dozer Operator Name Role Phone Petrona Paulino MD Primary Care Provider [phone] Encounter Details Date Type Department Care Team (Latest Contact Info) Description 07/27/2025 Travel Social History Tobacco Use Types Packs/Day Years [...] documented as of this encounter Care Teams Dozer Operator Relationship Specialty Start Date End Date Petrona Paulino MD [address] [place] [phone] PCP - General Family Medicine 07/16/18 documented as of this encounter
--- OUTSIDE RECORDS SUMMARY | 2025-07-27 14:58 | XMS_ITS | Encounter Summary ---
Author Organization [employer] Address [address] [facility] 7 [place] [address] Care Team Providers Care Ground Worker Name Role Phone Petrona Paulino MD Primary Care Provider [phone] Encounter Details Date Type Department Care Team (Late st Contact Info) Description 03/19/2025 Orders Only [facility] [address] [place] [address] Provider, MD Teri Social History Tobacco Use [...] Procedure Name Priority Date/Time Associated Diagnosis Comments MRI LUMBAR SPINE W WO CONTRAST Routine 03/17/2025 11:29 AM EDT documented in this encounter Results * MRI LUMBAR SPINE W WO CONTRAST (03/17/2025 11:29 AM EDT) Anatomical Region Laterality Modality Magnetic Resonan ce us Historical Provider MD SIMMONS MRI PROCEDURES Final Result documented in this encounter Visit Diagnoses Not on filedocumented in this encounter Additional Health Concerns Assessment Noted Time PHQ-9 Depression Total Score: 5 03/17/20 25 10:56 AM EDT documented as of this encounter Care Teams Ground Worker Relationship Specialty Start Date End Date Petrona Paulino MD [address] [place] [phone] PCP - General Family Medicine 07/16/18 documented as of this encounter
--- OUTSIDE RECORDS SUMMARY | 2025-07-27 14:58 | XMS_ITS | Encounter Summary ---
Author Organization [employer] Address [address] [place] [address] Care Team Providers Care Furniture Associate Name Role Phone Petrona Paulino MD Primary Care Provider [phone] Reason for Visit * Reason Onset Date Comments Appointment Request 10/16/2023 Encounter Details Date Type Department Care Team ([facility] st Contact Info) Description 10/16/2023 Telephone [facility] [address] [place] [address] Petrona Paulino MD [address] [place] [address] Appointment Request Social History Tobacco Use Types Packs/Day Years Used Date Smoking Tobacco: Never Assessed Sex and Gender Information Value Date Recorded Sex Assigned at Male 06/25/2022 10:23 AM EDT Legal Sex Male 10:23 AM EDT Gender Identity Male 06/25/2022 10:23 AM EDT Sexual Orientation Straight 06/25/2022 10 :23 AM EDT documented as of this encounter Miscellaneous Notes * Telephone Encounter - Agustina Montelongo - 10/16/2023 4:24 PM EST Tc from pt requesting a PE or f/u appt with PCP, pt released. documented in this encounter Plan of Treatment Not on file documented as of this encounter Visit Diagnoses Not on filedocumented in this encounter Care Teams Furniture Associate Relationship Specialty Start Date End Date Petrona Paulino MD [address] [place] [phone] PCP - General Family Medicine 07/16/18 documented as of this encounter
--- OUTSIDE RECORDS SUMMARY | 2025-07-27 14:58 | XMS_ITS | Encounter Summary ---
Author Organization [employer] Address [address] [facility] [place] [address] Care Team Providers Care Escort Patients Name Role Phone Petrona Paulino MD Primary Care Provider [phone] Encounter Details Date Type Department Care Team (Late st Contact Info) Description 07/27/2025 Orders Only GENERIC EXTERNAL DATA DEPARTMENT Provider, Generic External Data Social History Tobacco Use Types Packs/Day Years [...] Name Priority Date/Time Associated Diagnosis Comments POCT CARBON MONOXIDE Routine 07/27/2025 1:03 PM EST SARS COV2/INFLUENZA A/B AND RSV RNA QL NAAT Routine 07/27/2025 12:55 PM EST CBC WITH AUTO DIFFERENTIAL Routine 07/27/2025 12:55 PM EST MAGNESIUM Routine 07/27/2025 12:55 PM EST COMPREHENSIVE METABOLIC PANEL Routine 07/27/2025 12:55 PM EST documented in this encounter Results * POCT Carbon Monoxide (07/27/2025 1:03 PM EST) [facility] Signature Carbon Monoxide POC 3.0 % [facility] Comment:METER #: [id number] additional_comment: Cb bdawehCARBON MONOXIDE REFERENCE RANGE: NON SMOKERS: LESS THAN 2.0% SMOKERS: 2.0 - 9.0%Note:Therapeutic levels of Hydroxocobalamin (1 mg/mL and 2 mg/mL)may interfere with carboxyhemoglobin causing lower thanexpected values. A negative interference withcarboxyhemoglobin has the potential to alter the medicalassessment of the patient and may withhold necessaryfollow-up treatment in response to elevatedcarboxyhemoglobin levels. 07/27/2025 1:03 PM EST 07/27/2025 1:05 PM EST Generic External Data Provider LAB POINT OF CARE TEST DOCKED DEVICE ORDERABLES Final Result Performing Organization Address [facility] Co de Phone Number [facility] [address] [place] [phone] * SARS-CoV-2 RNA, Influenza A/B, and RSV RNA, Ql NAAT (07/27/2025 12:55 PM EST) Influenza A PCR NEGATIVE Negative [facility] Influenza B PCR NEGATIVE Negative [facility] Resp Syncy Virus RNA Qual PCR NEGATIVE Negative [facility] SARS COV2 PCR NEGATIVE Negative [facility] Comment:All test results mus t be correlated with clinical findings.Negative results do not preclude SARS-CoV2, influenza Avirus, influenza B virus and/or RSV infectionand should not be used as the sole basis for treatment orother patient management decisions. Negative results must becombined with clinical observations, patient history, andepidemiological information.This test has not been evaluated for monitoring treatment ofinfection.This test has been authorized by the FDA under an EmergencyUse Authorization (EUA) for use by authorized laboratories.Testing performed on the [employer] GeneXpert utilizingreal-time RT-PCR.All SARS CoV2 and positive influenza A/B results arereported to [facility]. 07/27/2025 12:5 5 PM EST 07/27/2025 12:59 PM EST us Generic External Data Provider LAB MICROBIOLOGY - GENERAL ORDERABLES Final Result Performing Organization Address [facility] Co de Phone Number [facility] [address] [place] [phone] * Magnesium (07/27/2025 12:55 PM EST) Magnesium 1.9 1.6 - 2.6 mg/dL [facility] 07/27/2025 12:5 5 PM EST 07/27/2025 12:59 PM EST us Generic External Data Provider LAB BLOOD ORDERAB LES Final Result [facility] [address] [place] [phone] [phone] * Comprehensive Metabolic Panel (07/27/2025 12:55 PM EST) Sodium 141 135 - 145 mmol/L [facility] Potassium 3.8 3.3 - 5.1 mmol/L [facility] Chloride 106 96 - 108 mmol/L [facility] Carbon Dioxide 26 22 - 29 mmol/L [facility] Anion Gap 13 12 - 20 [facility] Urea Nitrogen (BUN) 13 9 - 16 mg/dL [facility] Creatinine, Serum 0.68 0.5 - 1.4 mg/dL [facility] Creatinine Clr Calc Pharmacy 134.4 [facility] Comment:eGFR (calculated fro m the MDRD study equation) and eCrCl(calculated from the Cockcroft-Gault equation) are based ondifferent parameters and may not yield comparable results.If eCrCl result is absurd, please check patient'sheight/weight. Estimated Glomerular Filt Rate >60 [facility] Comment:Chronic Kidney Disea se: Estimated GFR < 60 mL/min/1.08w0Sivmbx Kidney Disease: Estimated GFR < 15 mL/min/1.73m2 Glucose 101 60 - 115 mg/dL [facility] Calcium 9.6 8.4 - 10.2 mg/dL [facility] Bilirubin, Total 0.6 0.0 - 1.0 mg/dL [facility] Aspartate Amino Transferase 24 5 - 37 U/L [facility] Alanine Aminotransferase 35 0 - 40 U/L [facility] Total Protein 7.0 6.5 - 8.0 g/dL [facility] Albumin Level 4.7 3.5 - 5.0 g/dL [facility] Alkaline Phosphatase 83 39 - 117 U/L [facility] 07/27/2025 12:5 5 PM EST 07/27/2025 12:59 PM EST us Generic External Data Provider LAB BLOOD ORDERAB LES Final Result [facility] [address] [place] [phone] [phone] * CBC auto differential (07/27/2025 12:55 PM EST) White Blood Count 9.8 4.8 - 10.8 X10*3/uL [facility] Red Blood Count 4.84 4.60 - 5.80 X10*6/uL [facility] Hemoglobin 15.0 14.0 - 18.0 g/dl [facility] Hematocrit 43.1 42.0 - 52.0 % [facility] Mean Corpuscular Volume 89.0 80.0 - 98.0 fL [facility] Mean Corpuscular Hemoglobin 31.0 27.0 - 33.0 pg [facility] Mean Corpuscular HGB Conc 34.8 31.0 - 36.0 g/dl [facility] Red Cell Distribution Width 12.2 11.0 - 16.0 % [facility] Platelet Count 290 160 - 400 X10*3/uL [facility] Mean Platelet Volume 9.4 9.4 - 12.4 fL [facility] Neutrophils Percent Auto 62.7 45 - 73 % [facility] Imm Gran Pct Auto 0.3 0.0 - 0.4 % [facility] Lymphocytes Percent Auto 25.9 20 - 40 % [facility] Monocytes Percent Auto 10.1 2 - 11 % [facility] Eosinophils Percent Auto 0.7 0 - 4 % [facility] Basophils Percent Auto 0.3 0 - 2 % [facility] NRBC Pct Auto 0.0 0.0 - 0.2 /100WBC [facility] Neutrophils Absolute Auto 6.1 2.0 - 8.3 x10*3/uL [facility] Imm Gran Abs Auto 0.03 0.00 - 0.03 X10*3/uL [facility] Lymphocytes Absolute Auto 2.5 1.2 - 4.9 X10*3/uL [facility] Monocytes Absolute Auto 1.0 0.1 - 1.2 X10*3/uL [facility] Eosinophils Absolute Auto 0.1 0.0 - 0.4 X10*3/uL [facility] Basophils Absolute Auto 0.0 0.0 - 0.2 X10*3/uL [facility] NRBC Abs Auto 0.000 0.0 - 0.012 X10*3/uL [facility] 07/27/2025 12:5 5 PM EST 07/27/2025 12:59 PM EST us Generic External Data Provider LAB BLOOD ORDERAB LES Final Result [facility] [address] [place] [phone] documented in this encounter Visit Diagnoses Not on filedocumented in this encounter Additional Health Concerns Assessment Noted Time PHQ-9 Depression Total Score: 5 03/17/20 25 10:56 AM EDT documented as of this encounter Care Teams Escort Patients Relationship Specialty Start Date End Date Petrona Paulino MD [address] [place] [phone] PCP - General Family Medicine 07/16/18 documented as of this encounter
--- OUTSIDE RECORDS SUMMARY | 2025-07-27 14:58 | XMS_ITS | Encounter Summary ---
Author Organization [employer] Address [address] [facility] 7 [place] [address] Care Team Providers Care Gas Dispenser Name Role Phone Petrona Paulino MD Primary Care Provider Reason for Visit * Reason Onset Date Comments Nurse Triage 02/26/2024 Encounter Details Date Type Department Care Team ([facility] st Contact Info) Description 02/26/2024 Telephone [facility] [address] [place] [address] Petrona Paulino MD [address] [place] [address] Nurse Triage Social History Tobacco Use Types Packs/Day Years Used Date Smoking Tobacco: Never Smokeless Tobacco: Never Alcohol Answer Date Recorded Frequency of Alcohol Consumption Not on file 11/28/2023 Average Number of Drinks Not on file 024 Frequency of Binge Drinking Not on file 11/2023 Score 0 11/28/2023 Depression Answer Date Recorded Patient Health Questionnaire-9 Score 8 01/27/2024 Patient Health Questionnaire-9 Score 8 01/27/2024 Last PHQ-9: Questionnaire Data Not on file 0 01/27/2024 Housing Stability Answer Date Recorded What is your housing situation today? I have rosio stiles 11/18/[address] you li ve. Do you have problems with any of the following? None of the above 11/18/2023 Food Insecurity Answer Date Recorded Within the past 12 months, y ou worried that your food would run out before you got money to buy more: Never True 11/18/2023 Within the past 12 months,th e food you bought just didn't last and you didn't have enough money to get more: Never True Transportation Answer Date Recorded In the past 12 months, has l ack of transportation kept you from medical appts, meetings, work or from getting things needed for daily living? No 11/18/2023 Utilities Answer Date Recorded In the past 12 months, has t he electric, gas, oil or water company threatened to shut off services in your home? No 11/18/2023 Depression Answer Date Recorded Patient Health Questionnaire-2 Score 3 01/27/2024 Sex and Gender Information Value Date Recorded Sex Assigned at Male 06/25/2022 10:23 AM EDT Legal Sex Male 10:23 AM EDT Gender Identity Male 06/25/2022 10:23 AM EDT Sexual Orientation Straight 06/25/2022 10 :23 AM EDT documented as of this encounter Miscellaneous Notes * Telephone Encounter - Agustina Montelongo - 02/26/2024 10:26 AM EDT Symptom: Hand or Wrist Pain - Not From Injury Outcome: Schedule an urgent appointment (within 1 hour) or talk to a nurse or provider soon Reason: Severe pain now The caller accepted this outcome Pt is requesting a call between 3;40-4:30 documented in this encounter Plan of Treatment Not on file documented as of this encounter Visit Diagnoses Not on filedocumented in this encounter Additional Health Concerns Assessment Noted Time PHQ-9 Depression Total Score: 8 01/27/20 24 3:37 PM EDT documented as of this encounter Care Teams Gas Dispenser Relationship Specialty Start Date End Date Petrona Paulino MD [address] [place] [id number] PCP - General Family Medicine 07/16/18 documented as of this encounter
--- OUTSIDE RECORDS SUMMARY | 2025-07-27 14:58 | XMS_ITS | Encounter Summary ---
Author Organization [employer] Address [address] [facility] [address] 7[address] [place] [address] Care Team Providers Care Environmental Sampling Technician Name Role Phone Petrona Paulino MD Primary Care Provider [phone] Encounter Details Date Type Department Care Team ([facility] st Contact Info) Description 04/24/2024 Orders Only [facility] MED[facility]INE [address] [place], [place] [phone] Shannon Hunter MD [address] [place], [place] [phone] Social History Tobacco Use Types Packs/Day Years [...] documented as of this encounter Care Teams Environmental Sampling Technician Relationship Specialty Start Date End Date Petrona Paulino MD [address] [place] [id number] PCP - General Family Medicine 07/16/18 documented as of this encounter
--- OUTSIDE RECORDS SUMMARY | 2025-07-27 14:58 | XMS_ITS | Clinical Summary ---
Author Organization [facility] Address [address] [place] [address] Phone Care Team Providers Care Software Project Lead Name Role Phone Petrona Paulino MD Primary Care Provider [phone] Allergies No known active allergies Medications carisoprodoL (SOMA) 350 mg tablet Take 1 tablet (350 mg total) by mouth 3 (three) times a day for 5 days. Max Daily Amount: 1,050 mg 15 tablet 02/26/2025 Active ketorolac (TORADOL) 10 mg tablet Take 1 tablet (10 mg total) by mouth every 6 (six) hours if needed for moderate pain for up to 5 days. 20 tablet 07/24/2025 07/29/20 25 Active metoclopramide (REGLAN) 10 mg tablet Take 1 tablet (10 mg total) by mouth every 6 (six) hours for 7 days. 30 tablet 07/24/2025 07/31/20 25 Active Encounters Date Type Department Care Team Description 07/24/2025 8:57 AM EST - 07/24/2025 11:52 AM EST Emergency [facility] Emergency [address] [place] [address] Nonintractable headache, unspecified chronicity pattern, unspecified headache [...] Mass Index 24.55 07/24/2025 9:03 AM EST Plan of Treatment Health Maintenance Due Date Last Done Comments DTaP,Tdap,and Td Vaccines (1 - Tdap) 2010 Hepatitis B Vaccines (1 of 3 - 19+ 3-dose series) 2010 HPV Vaccines (1 - 3-dose SCD M series) 2018 Depression Screening 08/26/2024 Social Influencers of Health Screening 02/26/2025 COVID-19 Vaccine (1 - 2024-2 6 season) 2025 Influenza Vaccine (#1) 2025 RSV Immunization Adult Patients (1 - 1-dose 75+ series) 2066 HIV Screening Completed 03/17/2025, 11/28/2023 Hepatitis C Screening Completed 03/17/2025 , 11/28/2023 HIB Vaccines Aged Out No longer [...] age to complete this topic Pneumococcal Vaccine: Pediatrics (0 to 5 Years) and At-Risk Patients (6 to 49 Years) Aged Out No longer eligible b ased on patient's age to complete this topic RSV Immunization Patients Under 20 months Aged Out No longer eligible b ased on patient's age to complete this topic Varicella Vaccines Aged Out No longer eligible based on patient's age to complete this topic Procedures Procedure Name Priority Date/Time Associated Diagnosis Comments CT HEAD WO CONTRAST STAT 07/24/2025 1 0:33 AM EST CBC WITH AUTO DIFFERENTIAL STAT 07/24/2025 9:17 AM EST CBC AND DIFFERENTIAL STAT 07/24/2025 9:17 AM EST BASIC METABOLIC PANEL STAT 07/24/2025 9:17 AM EST from Last 3 Months Results * CT Head wo Contrast (07/24/2025 [...] Signed Date: 07/24/2025 11:12 ET Workstation ID: [id number] Transcribed By: Self Edit Transcribed Date: 07/24/2025 [...] Signed Date: 07/24/2025 11:12 ET Workstation ID: [id number] Transcribed By: Self Edit Transcribed Date: 07/24/2025 11:03 ET Aditya CANALES [facility] [place]ED[place] Final Res ult * (ABNORMAL) CBC auto differential (07/24/2025 9:17 AM EST) WBC 9.4 4.8 - 10.8 K/[facility] LAB HEMETOLOGY METHOD 07/24/2025 9:35 AM [facility] RBC 5.20 4.50 - 5.50 M/[facility] LAB HEMETOLOGY METHOD 07/24/2025 9:35 AM HOLDEN [...] K/[facility] LAB HEMETOLOGY METHOD 07/24/2025 9:35 AM EST [facility] Monocytes Absolute 0.87 0.20 - 1.00 K/[facility] LAB HEMETOLOGY METHOD 07/24/2025 9:35 AM EST [facility] Eosinophils Absolute 0.20 0.00 - 0.50 K/[facility] LAB HEMETOLOGY METHOD 07/24/2025 9:35 AM EST [facility] Basophils Absolute 0.03 0.00 - 0.20 K/[facility] LAB HEMETOLOGY METHOD 07/24/2025 9:35 AM [facility] Immature Granulocytes Absolute 0.05(H) 0.00 - 0.03 K/[facility] LAB HEMETOLOGY METHOD 07/24/2025 9:35 AM [facility] Blood Venous blood specimen / Unknown Venipuncture / Unknown 07/24/2025 9:17 AM EST 07/24/2025 9:31 AM EST Aditya CANALES LAB BLOOD ORDERABLES Final Result [facility] [address] [place] [address], * (ABNORMAL) Basic Metabolic Panel (BMP) (07/24/2025 9:17 AM EST) Sodium 141 133 - 145 mmol/L 07/24/2025 9:59 AM EST [facility] Potassium 4.6 3.5 - 5.5 mmol/L 07/24/2025 9:59 AM [facility] Chloride 106 96 - 110 mmol/L 07/24/2025 9:59 AM [facility] CO2 27 21 - 32 mmol/L 07/24/2025 9:59 AM EST [facility] Anion Gap 8 3 - 11 07/24/2025 9:59 AM EST [facility] Glucose 108(H) 70 - 100 mg/dL 07/24/2025 9:59 AM [facility] BUN 21 5 - 25 mg/dL 07/24/2025 9:59 AM [facility] Creatinine 0.82 0.70 - 1.30 mg/dL 07/24/2025 9:59 AM [facility] eGFR 119 >=60 mL/min/1. 73m2 07/24/2025 9:59 AM [facility] Comment:Calculation based on the Chronic Kidney Disease Epidemiology Collaboration (CKD-EPI) equation refit without adjustment for race. BUN/Creatinine Ratio 25.6 07/24/2025 9:59 AM [facility] Calcium 9.6 8.5 - 10.5 mg/dL 07/24/2025 9:59 AM [facility] Blood Venous blood specimen / Unknown Venipuncture / Unknown 07/24/2025 9:17 AM EST 07/24/2025 9:31 AM EST Aditya CANALES LAB BLOOD ORDERABLES Final Result Performing Organization Address City/State/[facility] Co de Phone Number [facility] [address] [place] [address], from Last 3 Months Insurance [facility] Member Subscriber Plan / Payer (Ef fective 2023-Present) Name:HEATHER YOU Relation to Subscriber:Self Name:Heather You Payer ID:[id number] Group ID:[id number] Type:Not on file Address: [place] [address] [address] [phone] Care Teams Software Project Lead Relationship Specialty Start Date End Date Petrona Paulino MD [address] [place] [phone] PCP - General Internal Medicine 02/26/25
--- OUTSIDE RECORDS SUMMARY | 2025-07-27 14:58 | XMS_ITS | Encounter Summary ---
Author Organization [employer] Address [address] [facility] 7 [place] [address] Care Team Providers Care Grill Cook Name Role Phone Petrona Paulino MD Primary Care Provider [phone] Reason for Visit * Reason Onset Date Comments Med Refill 02/26/2024 Encounter Details Date Type Department Care Team ([facility] st Contact Info) Description 02/26/[address] [facility] MED[facility]INE [address] [place] [address] Petrona Paulino MD [address] [place] [address] Med Refill Social History Tobacco Use Types Packs/Day Years [...] encounter Miscellaneous Notes * Telephone Encounter - Mandy [place] - 02/26/2024 10:30 AM EDT Outgoing call to [facility]/pharmacy #[facility] [phone] [facility] regarding medications cetirizine (ZyrTEC) 10 MG tablet omeprazole (PriLOSEC) [address] capsule[address] Fish Inspector spoke with pharmacy staff Frank and requested scriptto be transferred from [address] * Telephone Encounter - Agustina Montelongo - 02/26/2024 10:19 AM EDT TC from pt requesting medication refill. Medications needing refill : cetirizine (ZyrTEC) 10 MG tablet omeprazole (PriLOSEC) [address] capsule To be sent to: [facility]/pharmacy #[id number] - [facility] [phone] [facility] Medication was requested by mistake to [facility] documented in this encounter Plan of Treatment Not on file documented as of this encounter Visit Diagnoses Not on filedocumented in this encounter Additional Health Concerns Assessment Noted Time PHQ-9 Depression Total Score: 8 01/27/20 24 3:37 PM EDT documented as of this encounter Care Teams Grill Cook Relationship Specialty Start Date End Date Petrona Paulino MD [address] [place] [address] PCP - General Family Medicine 07/16/18 documented as of this encounter
--- OUTSIDE RECORDS SUMMARY | 2025-07-27 14:58 | XMS_ITS | Encounter Summary ---
Author Organization [employer] Address [address] [facility] 7 [place] [address] Care Team Providers Care Human Relations Teacher Name Role Phone Petrona Paulino MD Primary Care Provider [phone] Reason for Visit * Reason Onset Date Comments ED expect 07/27/2025 Encounter Details Date Type Department Care Team ([facility] st Contact Info) Description 07/27/2025 Telephone [facility] [address] [place] [address] Petrona Paulino MD [address] [place] [address] ED expect Social History Tobacco Use Types Packs/Day Years [...] Encounter - Reid Alvarez RN - 07/27/2025 12:19 PM EST [place] [facility] [place] [phone] regarding patient expect. Verbal report given to triage. documented in this encounter Plan of Treatment Not on file documented as of this encounter Visit Diagnoses Not on filedocumented in this encounter Additional Health Concerns Assessment Noted Time PHQ-9 Depression Total Score: 5 03/17/20 25 10:56 AM EDT documented as of this encounter Care Teams Human Relations Teacher Relationship Specialty Start Date End Date Petrona Paulino MD [address] [place] [phone] PCP - General Family Medicine 07/16/18 documented as of this encounter
--- OUTSIDE RECORDS SUMMARY | 2025-07-27 14:58 | XMS_ITS | Encounter Summary ---
Author Organization [employer] Address [address] [place] [address] [place] [address] Care Team Providers Care Linux Unix Engineer Name Role Phone Petrona aPulino MD Primary Care Provider [phone] Encounter Details Date Type Department Care Team (Latest Contact Info) Description 09/11/2018 Abstract [facility] CONVERSIONS Dental, Provider, DDS Social History Tobacco Use Types Packs/Day Years [...] on filedocumented in this encounter Care Teams Linux Unix Engineer Relationship Specialty Start Date End Date Petrona Paulino MD [address] [place] [address] PCP - General Family Medicine 07/16/18 documented as of this encounter
--- OUTSIDE RECORDS SUMMARY | 2025-07-27 14:58 | XMS_ITS | Clinical Summary ---
Author Organization [employer] Address [address] [facility] [facility] [address] [place] [address] Care Team Providers Care Pneumatic Tube Operator Name Role Phone Petrona Paulino MD Primary Care Provider [phone] Allergies No known active allergies Medications * This document contains information received from the source organization and may not represent a complete record from that organization. cetirizine (ZyrTEC) 10 MG tablet Take 1 tablet (10 mg) by mouth Once per day. 30 tablet 5 02/26/20 24 Active omeprazole (PriLOSEC) [address] capsule Take 1 capsule (20 mg) by mouth before breakfast. 30 capsule 3 05/21/20 24 Active carisoprodol (Soma) 350 MG tablet Take 350 mg by mouth 3 times daily. 02/27/20 25 Active cyclobenzaprine (Flexeril) 10 MG tablet Take 10 mg by mouth if needed at bedtime. 03/01/20 25 Active ibuprofen 800 MG tablet Take 1 tablet (800 mg) by mouth 3 times daily. 90 tablet 1 03/17/20 25 Active cyclobenzaprine (Flexeril) 10 MG tabletIndicatio ns:Chronic bilateral low back pain without sciatica Take 1 tablet (10 mg) by mouth 3 times daily for 10 days. 30 tablet 03/29/20 25 Active naproxen (Naprosyn) 500 MG tablet TAKE 1 TABLET BY MOUTH TWICE A DAY 60 tablet 04/28/20 25 025 Discontinued verapamil (Calan) 40 MG tabletIndicatio ns:Episodic cluster headache, not intractable Take 1 tablet (40 mg) by mouth 3 times daily. 90 tablet 07/17/20 25 025 Discontinued SUMAtriptan (Imitrex) 20 MG/ACT nasal sprayIndication s:Episodic cluster headache, not intractable Administer 1 spray (20 mg) into one nostril if needed (cluster headache). 6 each 07/17/20 25 025 Discontinued Active Problems Problem Noted Date Diagnosed Date Acute midline back pain 03/30/2025 Mild anxiety 01/27/2024 Cannabis use disorder 01/27/2024 Gastroesophageal reflux disease without esophagi tis 11/28/2023 Depression, recurrent 11/28/2023 Assessment & Plan (01/27/2024 4:05 PM EDT): ID: Say is a 33 y.o. Black or straight-identified cis- male with previous documented hx of Depression who presents for Anxiety and Depression. Lives with mother after been released from care home. Hx of trauma in childhood and adulthood. During IBH Consult Say presenting with depressed mood, loss of interests/pleasure , trouble concentrating, fatigue/loss of energy, excessive worry/anxiety, difficulty controlling worry, easily fatigued, irritability, and muscle tension, and using in larger amounts or for longer than intended, unsuccessful attempt/s to cut down/stop use, continued use despite physical or psychological problem (potentially related or made worse by use) , using on a daily basis, in regard to Cannabis; for a period of 18+ mo, for all symptoms in the context of released from care home 6 months ago, adjusting to community, struggling with affording housing, and living with mother . PLAN: New/Additional Services needed Off-site services for Behavioral Health Integration Plan Internal Follow up with [facility] External OP therapy referral and OP psychiatry Referral Patient Self Plan Patient to utilize skills provided in intervention , Patient to reach out to [facility] team as needed, and Patient to engage in OP therapy Encounters Date Type Department Care Team Description 07/27/2025 11:00 AM EST Office Visit [facility] [address] [place] [phone] Alfredito Vogt MD Intractable headache, unspecified chronicity pattern, unspecified headache type (Primary Dx); Nausea and vomiting, unspecified vomiting type 07/27/2025 Orders Only GENERIC EXTERNAL DATA DEPARTMENT Provider, Generic External Data 07/27/2025 Telephone [facility] [address] [place] [phone] Petrona Paulino MD ED expect 07/27/2025 Travel 07/27/2025 Telephone [facility] MEDICINE [address] [place] [phone] Petrona Paulino MD ER Follow-up 07/26/2025 Orders Only [facility] [address] [place] [phone] Provider, MD Teri 07/24/2025 Refill [facility] [address] [place] [phone] Greg Rivera MD Episodic cluster headache, not intractable 07/17/2025 11:20 AM EST Office Visit [facility] W[facility]-IN [address] [address] Greg Rivera MD Episodic cluster headache, not intractable (Primary Dx) 07/17/2025 Travel 07/16/2025 Telephone [facility] MEDICINE [address] [place] [phone] Petrona Paulino MD Nurse Triage 04/27/2025 Refill [facility] [address] [place] [phone] Andrea Briceno MD from Last 3 Months Family History Medical History Relation Name Comments Diabetes Maternal Grandmother Relation Name Status Comments Maternal Grandmother Social History Tobacco Use Types Packs/Day Years Used Date Smoking Tobacco: Never Passive Smoke Exposure: Never Smokeless Tobacco: Never Tobacco Cessation:Counseling Given: Not Answered Alcohol Answer Date Recorded Frequency of Alcohol [...] Orientation Straight 06/25/2022 10 :23 AM EDT Last Filed Vital Signs Vital Sign Reading Time Taken Comments Blood Pressure 134/86 07/27/2025 11:28 AM EST Pulse 83 07/27/2025 11:28 AM EST Temperature 36.7 C (98 F) 07/27/2025 11:28 AM EST Respiratory Rate 17 07/27/2025 11:28 AM EST Oxygen Saturation 99% 07/27/2025 11:28 AM EST Inhaled Oxygen Concentration - - Weight 64.6 kg (142 lb 6.4 oz) 07/27/2025 11:28 AM EST Height 165.1 cm (5' 5 ) 07/17/2025 11:27 AM EST Body Mass Index 23.7 07/17/2025 11:27 AM EST Plan of Treatment Health Maintenance Due Date Last Done Comments Family Planning (PISQ) 2006 HPV Vaccines (1 - Male 3-dos e series) 2006 DTaP/Tdap/Td Vaccines (1 - Tdap) 2010 Hepatitis B Vaccines (1 of 3 - 19+ 3-dose series) 2010 COVID-19 Vaccine (1 - 2024-2 6 season) 2025 Influenza Vaccine (#1) 2025 Alcohol/Substance Use Screening 03/17/2026 03/17/2025 Depression Screening 03/17/2026 03/17/2025, 03/17/2025 Disability Screening 03/17/2026 03/17/2025 SDOH Screening 03/17/2026 03/17/2025 Tobacco Screening 07/27/2026 07/27/2025 Zoster Vaccines (1 of 2) 2041 RSV Patients and Patients Aged 60 years or older (1 - 1-dose 75+ series) 2066 HIV Screening Completed 03/17/2025, 11/28/2023, 01/31/2022 Hepatitis C Screening Completed 03/17/2025 , 11/28/2023, 01/31/2022 HIB Vaccines Aged Out No longer eligi [...] patient's age to complete this topic Meningococcal Vaccine Aged Out No johanny faisal eligible based on patient's age to complete this topic Pneumococcal Vaccine: Pediatrics (0 to 5 Years) and At-Risk Patients (6 to 49) Years Aged Out No longer eligible b ased on patient's age to complete this topic RSV under 20 months Aged Out No longe r eligible based on patient's age to complete this topic Rotavirus Vaccines Aged Out No longer eligible based on patient's age to complete this topic Procedures Procedure Name Priority Date/Time Associated Diagnosis Comments POCT CARBON MONOXIDE Routine 07/27/2025 1:03 PM EST MAGNESIUM Routine 07/27/2025 12:55 PM EST COMPREHENSIVE METABOLIC PANEL Routine 07/27/2025 12:55 PM EST CBC WITH AUTO DIFFERENTIAL Routine 07/27/2025 12:55 PM EST SARS COV2/INFLUENZA A/B AND RSV RNA QL NAAT Routine 07/27/2025 12:55 PM EST POCT RAPID COVID ANTIGEN Routine 07/27/2025 11:53 AM EST Intractable headache, unspecified chronicity pattern, unspecified headache type POCT INFLUENZA A (ID NOW RAPID MOLECULAR) Routine 07/27/2025 11:53 AM EST Intractable headache, unspecified chronicity pattern, unspecified headache type POCT INFLUENZA B (ID NOW RAPID MOLECULAR) Routine 07/27/2025 11:53 AM EST Intractable headache, unspecified chronicity pattern, unspecified headache type CT HEAD WO CONTRAST Routine 07/24/2025 HEPATITIS C AB W/REFL TO HCV RNA, QN, PCR Routine 03/17/2025 11:29 AM EDT Abdominal pain, chronic, epigastric At risk for sexually transmitted disease due to unprotected sex HIV 1/2 ANTIGEN/ANTIBODY, FOURTH GENERATION W/RFL Routine 03/17/2025 11:29 AM EDT Abdominal pain, chronic, epigastric At risk for sexually transmitted disease due to unprotected sex from Last 3 Months or Most Recently Relevant to Health Maintenance Results * POCT Carbon Monoxide (07/27/2025 1:03 PM EST) [facility] Carbon Monoxide POC 3.0 % [facility] Comment:METER #: [id number] additional_comment: Cb bdawehCARBON MONOXIDE REFERENCE RANGE: NON [...] DEVICE ORDERABLES Final Result Performing Organization Address [facility] Co de Phone Number [facility] [address] [place] [phone] * SARS-CoV-2 RNA, Influenza A/B, and RSV RNA, Ql NAAT (07/27/2025 12:55 PM EST) Pathologist [facility] Influenza A PCR NEGATIVE Negative [facility] Influenza B PCR NEGATIVE Negative [facility] Resp Syncy Virus RNA Qual PCR NEGATIVE Negative [facility] SARS COV2 PCR NEGATIVE Negative [facility] Comment:All test results mus t be [...] use by authorized laboratories.Testing performed on the [employer] GeneXpert utilizingreal-time RT-PCR.All SARS CoV2 and positive influenza A/B results arereported to [facility]. 07/27/2025 12:5 5 PM EST 07/27/2025 12:59 PM EST Generic External Data Provider LAB MICROBIOLOGY - GENERAL ORDERABLES Final Result Performing Organization Address [facility] Co de Phone Number [facility] [address] [place] [address] [phone] * CBC auto differential (07/27/2025 12:55 PM EST) White Blood Count 9.8 4.8 - 10.8 X10*3/uL [facility] Red Blood Count 4.84 4.60 - 5.80 X10*6/uL [facility] Hemoglobin 15.0 14.0 - 18.0 g/dl [facility] Hematocrit 43.1 42.0 - 52.0 % [facility] Mean Corpuscular Volume 89.0 80.0 - 98.0 fL [facility] Mean Corpuscular Hemoglobin 31.0 27.0 - 33.0 pg [facility] Mean Corpuscular HGB Conc 34.8 31.0 - 36.0 g/dl [facility] Red Cell Distribution Width 12.2 11.0 - 16.0 % [facility] Platelet Count 290 160 - 400 X10*3/uL [facility] Mean Platelet Volume 9.4 9.4 - 12.4 fL [facility] Neutrophils Percent Auto 62.7 45 - 73 % [facility] Imm Gran Pct Auto 0.3 0.0 - 0.4 % [facility] Lymphocytes Percent Auto 25.9 20 - 40 % [facility] Monocytes Percent Auto 10.1 2 - 11 % [facility] Eosinophils Percent Auto 0.7 0 - 4 % [facility] Basophils Percent Auto 0.3 0 - 2 % [facility] NRBC Pct Auto 0.0 0.0 - 0.2 /100WBC [facility] Neutrophils Absolute Auto 6.1 2.0 - 8.3 x10*3/uL [facility] Imm Gran Abs Auto 0.03 0.00 - 0.03 X10*3/uL [facility] Lymphocytes Absolute Auto 2.5 1.2 - 4.9 X10*3/uL [facility] Monocytes Absolute Auto 1.0 0.1 - 1.2 X10*3/uL [facility] Eosinophils Absolute Auto 0.1 0.0 - 0.4 X10*3/uL [facility] Basophils Absolute Auto 0.0 0.0 - 0.2 X10*3/uL [facility] NRBC Abs Auto 0.000 0.0 - 0.012 X10*3/uL [facility] 07/27/2025 12:5 5 PM EST 07/27/2025 12:59 PM EST us Generic External Data Provider LAB BLOOD ORDERAB LES Final Result Performing Organization Address [facility] Co de Phone Number [facility] [address] [place] [phone] * Magnesium (07/27/2025 12:55 PM EST) Magnesium 1.9 1.6 - 2.6 mg/dL [facility] 07/27/2025 12:5 5 PM EST 07/27/2025 12:59 PM EST us Generic External Data Provider LAB BLOOD ORDERAB LES Final Result Performing Organization Address [facility] de Phone Number [facility] [address] [place] [address] [phone] * Comprehensive Metabolic Panel (07/27/2025 12:55 PM EST) Pathologist [facility] Sodium 141 135 - 145 mmol/L [facility] Potassium 3.8 3.3 - 5.1 mmol/L [facility] Chloride 106 96 - 108 mmol/L [facility] Carbon Dioxide 26 22 - 29 mmol/L [facility] Anion Gap 13 12 - 20 [facility] Urea Nitrogen (BUN) 13 9 - 16 mg/dL [facility] Creatinine, Serum 0.68 0.5 - 1.4 mg/dL [facility] Creatinine Clr Calc Pharmacy 134.4 [facility] Comment:eGFR (calculated fro m the MDRD study equation) and eCrCl(calculated from the Cockcroft-Gault equation) are based ondifferent parameters and may not yield comparable results.If eCrCl result is absurd, please check patient'sheight/weight. Estimated Glomerular Filt Rate >60 [facility] Comment:Chronic Kidney Disea se: Estimated GFR < 60 mL/min/[id number] Kidney Disease: Estimated GFR < 15 mL/min/1.73m2 Glucose 101 60 - 115 mg/dL [facility] Calcium 9.6 8.4 - 10.2 mg/dL [facility] Bilirubin, Total 0.6 0.0 - 1.0 mg/dL [facility] Aspartate Amino Transferase 24 5 - 37 U/L [facility] Alanine Aminotransferase 35 0 - 40 U/L [facility] Total Protein 7.0 6.5 - 8.0 g/dL [facility] Albumin Level 4.7 3.5 - 5.0 g/dL [facility] Alkaline Phosphatase 83 39 - 117 U/L [facility] 07/27/2025 12:5 5 PM EST 07/27/2025 12:59 PM EST Generic External Data Provider LAB BLOOD ORDERAB LES Final Result Performing Organization Address [facility] Co de Phone Number [facility] [address] [place] [phone] * POCT Rapid Influenza B YEBOAH ID NOW (07/27/2025 11:53 AM EST) Influenza B Negative Negative, Indeterminate [facility] Swab 07/27/2025 11:5 3 AM EST Alfredito Vogt MD POINT OF CARE TEST ENTER/EDIT OR DERABLES Final Result Performing Organization Address [facility] Co de Phone Number [facility] [address] [place] [address] [phone] * POCT Rapid Influenza A YEBOAH ID NOW (07/27/2025 11:53 AM EST) Influenza A Negative Negative, Indeterminate [facility] Swab 07/27/2025 11:5 3 AM EST Alfredito Vogt MD POINT OF CARE TEST ENTER/EDIT OR DERABLES Final Result Performing Organization Address [facility] Co de Phone Number [facility] [address] [place] [address] [phone] * POCT Rapid Covid-19 BinaxNOW (07/27/2025 11:53 AM EST) [facility] Rapid COVID Ag Negative Swab 07/27/2025 11:5 3 AM EST Alfredito Vogt MD POINT OF CARE TEST ENTER/EDIT OR DERABLES Final Result * CT Head w/o Contrast (07/24/2025) Anatomical Region Laterality Modality Head, Neck Computed Tomogra phy Historical Provider IMG CT PROCEDURES Final R esult * Hepatitis C Antibody with Reflex to HCV, RNA, Quantitative, Real-Time PCR (03/17/2025 11:29 AM EDT) [facility] Hepatitis C Antibody Nonreactive Nonreactive [facility] Comment:Antibodies to HCV no t detected; does not exclude early acuteHCV infection. Blood Venous blood specimen / Unknown 03/17/2025 11:29 AM EDT 03/17/2025 2:13 PM EDT Petrona Paulino MD LAB BLOOD ORDERABLES Final Re sult [facility] [address] [place] [phone] * HIV-1/2 Antigen and Antibodies, Fourth Generation, with Reflexes (03/17/2025 11:29 AM EDT) [facility] HIV AB/AG Nonreactive Nonreactive [facility] Comment:HIV-1 p24 Ag and/or HIV-1/HIV-2 Ab not detected.A test result that is nonreactive does not exclude thepossibility of exposure to or infection with HIV-1 and/orHIV-2. Nonreactive results in this assay for individualswith prior exposure to HIV-1 and/or HIV-2 may be due toantigen and antibody levels that are below the limit ofdetection of this assay.The [employer] HIV Ag/Ab Combo assay result andsupplemental assay results should be interpreted inconjunction with the patient's clinical presentation,history and other laboratory results. If the results areinconsistent with clinical evidence, additional testing issuggested to confirm the result. Blood Venous blood specimen / Unknown 03/17/2025 11:29 AM EDT 03/17/2025 2:13 PM EDT us Petrona Paulino MD LAB BLOOD ORDERABLES Final Re sult [facility] [address] [place] [phone] from Last 3 Months or Most Recently Relevant to Health Maintenance Insurance [facility] ONE CARE < 65 GENERIC COMMERCIAL GENERIC COMMERCIAL Care Teams Pneumatic Tube Operator Relationship Specialty Start Date End Date Petrona Paulino MD [address] [place] [phone] PCP - General Family Medicine 07/16/18
--- OUTSIDE RECORDS SUMMARY | 2025-07-27 14:58 | XMS_ITS | Encounter Summary ---
Author Organization [employer] Address [address] [place] [address] [place] [address] Care Team Providers Care Grapple Crew Leader Name Role Phone Petrona Paulino MD Primary Care Provider Encounter Details Date Type Department Care Team (Latest Contact Info) Description 10/29/2019 Abstract [facility] CONVERSIONS Dental, Provider, DDS Social History Tobacco [...] on filedocumented in this encounter Care Teams Grapple Crew Leader Relationship Specialty Start Date End Date Petrona Paulino MD [address] [place] [phone] PCP - General Family Medicine 07/16/18 documented as of this encounter
[2025-07-27 22:35] VITALS: BP 139/75; PULSE 71; RESP 18; TEMP 36.6; O2SAT 98
[2025-07-28 04:50] LABS: Syphilis Screen Nonreactive (Nonreactive)
[2025-07-28 05:15] LABS: HIV Num 1 0.08 S/CO (0.00-0.99)
[2025-07-28 07:19] LABS: CT PCR Urine NOT DETECTED (Not Detect.); NG PCR Urine NOT DETECTED (Not Detect.)
== END 2025-07-27 22:35 | disposition home or self-care (01) ==
PROVIDERS: Physician Assistant Medical; Emergency Provider Student in an Organized Health Care Education/Training Program; PCP Pediatrics
DX: R51.9 Headache, unspecified (principal)
CPT/HCPCS: 36415; 80053; 82375; 83735; 85025; 86780; 87389; 87491; 87591; 87637; 96372; 99282; 99284; J0696; J2003